=== PATIENT | female | born 1990 | race Caucasian/White ===

== ENCOUNTER 2018-05-28 01:45 | Emergency (ER) | payer OTHER ==
[~2018-05-28] VITALS: Ht 162.6 cm; Wt 56.7 kg
[~2018-05-28 01:45] MED LIST: PROMETHAZINE12.5 M1 PO; SEASONALE1 EACH PO
[2018-05-28 01:53] VITALS: BP 113/72
[2018-05-28 02:00] LABS: URINE BLOOD NEGATIVE (Negative); URINE CLARITY CLEAR; URINE COLOR YELLOW; URINE GLUCOSE-RANDOM NEGATIVE (Negative); URINE KETONES TRACE (Negative); URINE LEUKOCYTES-REFLEX 1+ (Negative); URINE NITRITE-REFLEX NEGATIVE (Negative); URINE PROTEIN NEGATIVE (Negative); URINE SPECIFIC GRAVITY >= 1.030 (1.005-1.030); URINE UROBILINOGEN 0.2 E.U./dl (0.2-1.0)
[2018-05-28 02:01] LABS: URINE BILIRUBIN 1+ (Negative)
[2018-05-28 02:03] LABS: BACTERIA-REFLEX >30 Many /HPF (None Seen); CASTS None Seen /LPF (None Seen); CRYSTALS None Seen /LPF (None Seen); MUCUS 4-6 Moderate strn/LPF (None Seen); SQUAMOUS 0-3 Few /LPF (0-3); URINE RBC 3-10 Few /HPF (0-2)
[2018-05-28] MEDS ORDERED: ZOFRAN4 MG PO (02:25)
[2018-05-28] MEDS ORDERED: PYRIDIUM200 MG PO (02:25)
[2018-05-28] MEDS ORDERED: KEFLEX500 M1 PO (02:25)
[2018-05-28 11:51] LABS: ICTOTEST (BILI CONFIRMATORY) Negative (Negative)
== END 2018-05-28 02:32 | disposition home or self-care (01) ==
LOC: M.ERS 01:45
PROVIDERS: Personal Emergency Response Attendant
DX: N39.0 Urinary tract infection, site not specified (principal); K52.9 Noninfective gastroenteritis and colitis, unspecified; F32.9 Major depressive disorder, single episode, unspecified; F17.210 Nicotine dependence, cigarettes, uncomplicated; Z88.6 Allergy status to analgesic agent

== ENCOUNTER 2018-07-30 05:59 | Emergency (ER) | payer OTHER ==
[~2018-07-30] VITALS: Ht 162.6 cm; Wt 54.4 kg
[~2018-07-30 05:59] MED LIST changes: +KEFLEX500 M1 PO; +PYRIDIUM200 MG PO; +ZOFRAN4 MG PO
[2018-07-30 06:13] VITALS: BP 117/62
[2018-07-30] MEDS ORDERED: AMOXICILLIN 50500 M1 PO (06:21)
[2018-07-30] MEDS ORDERED: PERIDEX 0.12%473 M1 SWISH&SPIT (06:21)
[2018-07-30] MEDS ORDERED: NORCO 7.5-3251 EACH PO (06:21)
== END 2018-07-30 06:33 | disposition home or self-care (01) ==
LOC: M.ERS 05:59
DX: K05.219 Aggressive periodontitis, localized, unspecified severity (principal); F32.9 Major depressive disorder, single episode, unspecified; Z88.5 Allergy status to narcotic agent

== ENCOUNTER 2019-06-06 12:07 | Emergency (ER) | payer OTHER ==
[~2019-06-06] VITALS: Ht 162.6 cm; Wt 59.0 kg
[~2019-06-06 12:07] MED LIST changes: +AMOXICILLIN 50500 M1 PO; +NORCO 7.5-3251 EACH PO; +PERIDEX 0.12%473 M1 SWISH&SPIT
[2019-06-06] MEDS ORDERED: PNV 29-1 TABLE1 EACH PO (12:14)
[2019-06-06 13:14] LABS: URINE BILIRUBIN NEGATIVE (Negative); URINE BLOOD 1+ (Negative); URINE CLARITY CLEAR; URINE COLOR YELLOW; URINE GLUCOSE-RANDOM NEGATIVE (Negative); URINE KETONES NEGATIVE (Negative); URINE LEUKOCYTES-REFLEX NEGATIVE (Negative); URINE NITRITE-REFLEX NEGATIVE (Negative); URINE PROTEIN NEGATIVE (Negative); URINE UROBILINOGEN 0.2 E.U./dl (0.2-1.0)
[2019-06-06 13:19] LABS: ABSOLUTE BASOPHILS 0.1 thou/uL (0.0-0.2); ABSOLUTE EOSINOPHILS 0.4 thou/uL (0.0-0.7); ABSOLUTE LYMPHOCYTES 3.7 thou/uL (0.8-5.3); ABSOLUTE MONOCYTES 0.7 thou/uL (0.0-1.2); ABSOLUTE NEUTROPHILS 7.3 thou/uL (1.6-8.1); BASOPHILS 0.5 %; EOSINOPHILS 2.9 %; HEMATOCRIT 34.7 % (37.0-47.0); HEMOGLOBIN 11.6 gm/dL (12.0-15.0); LYMPHOCYTES 30.6 %; MCH 28.1 pg (26.0-34.0); MCHC 33.5 g/dL (28.0-37.0); MCV 83.9 fL (80.0-100.0); MONOCYTES 5.8 %; MPV 6.8 fl. (7.2-11.1); NUCLEATED RBCS 0 /100WBC; PLATELET COUNT* 405 thou/uL (150-400); POLYS 60.2 %; RBC 4.14 mil/uL (4.20-5.00); RDW-CV 13.5 % (10.5-14.5); WBC 12.2 thou/uL (4.0-11.0)
[2019-06-06 13:29] LABS: SQUAMOUS >10 Many /LPF (0-3)
[2019-06-06 13:32] LABS: BACTERIA-REFLEX 1-9 Few /HPF (None Seen); URINE RBC None Seen /HPF (0-2); URINE WBC-REFLEX 0-5 Rare /HPF (0-5)
[2019-06-06 13:33] LABS: CALCIUM 8.1 mg/dL (8.5-10.1); CREATININE 0.7 mg/dL (0.6-1.3); POTASSIUM 3.8 mmol/L (3.5-5.1)
[2019-06-06 13:33] LABS: CASTS None Seen /LPF (None Seen); CRYSTALS None Seen /LPF (None Seen); MUCUS 0-3 Light strn/LPF (None Seen)
[2019-06-06 13:35] LABS: APTT 25.2 Seconds (25.0-31.3); PROTIME 9.9 Seconds (9.20-11.50)
[2019-06-06 13:37] LABS: TOTAL BILIRUBIN 0.2 mg/dL (<0.1-1.0); TOTAL PROTEIN 6.8 g/dL (6.4-8.2)
[2019-06-06 14:24] VITALS: BP 144/89
== END 2019-06-06 14:25 | disposition home or self-care (01) ==
LOC: M.ERS 12:07
PROVIDERS: Physician Assistant
DX: O90.89 Other complications of the puerperium, not elsewhere classified (principal); R51 Headache; F32.9 Major depressive disorder, single episode, unspecified; Z88.5 Allergy status to narcotic agent

== ENCOUNTER 2020-05-31 12:13 | Emergency (ER) | payer OTHER ==
[~2020-05-31] VITALS: Ht 162.6 cm; Wt 61.2 kg
[~2020-05-31 12:13] MED LIST changes: +PNV 29-1 TABLE1 EACH PO
[2020-05-31] MEDS ORDERED: AMOXICILLIN 50500 MG PO (12:24)
[2020-05-31] MEDS ORDERED: HYDROCODON-ACE1 EAC7 PO (12:32)
[2020-05-31 12:57] VITALS: BP 115/70
== END 2020-05-31 12:57 | disposition home or self-care (01) ==
LOC: M.ERS 12:13
DX: K04.7 Periapical abscess without sinus (principal); Z88.5 Allergy status to narcotic agent